=== PATIENT | female | born 1935 | race Caucasian/White ===

== ENCOUNTER 2017-09-20 18:21 | Emergency (ER) | END 2017-09-21 01:27 | disposition home or self-care (01) ==

== ENCOUNTER 2018-08-14 04:44 | Inpatient (IN) | payer MEDICARE, OTHER ==
[~2018-08-14] VITALS: Ht 149.9 cm; Wt 63.3 kg
[2018-08-14] VITALS (11 sets, daily range): BP systolic 131–167; BP diastolic 61–72; PULSE 39–93; RESP 16–20; Ht 149.9 cm; Wt 63.3 kg
[~2018-08-14 04:44] MED LIST: FERROUS SULFATE PO; GABAPENTIN PO; MELOXICAM PO; NITR-58 PO; ONDA4TAB8 PO; PANTOPRAZOLE PO; PREVASTATIN; SEROQUEL PO; SERTRALINE PO; TRAMADOL; ZOLPIDEM PO
[2018-08-14] MEDS ORDERED: morphine 2 MG INJ IV ONE (05:13)
[2018-08-14] MEDS ORDERED: ONDANSETRON 4 MG INJ IV ONE (05:13)
[2018-08-14] MEDS ORDERED: LIDOCAINE/MYLANTA 40 ML BTL PO ONE (05:30)
[2018-08-14] MEDS ORDERED: CEFEPIME 2GM/50 ML (PMX) 50 ML IVPB STA (05:53)
[2018-08-14] MEDS ORDERED: PIPER-TAZO 3.375 GM IV (PMX) 100 ML IVPB STA (05:56)
[2018-08-14] MEDS ORDERED: VANCOMYCIN 1 GM (PMX) 250 ML IVPB ONE (06:00)
--- NOTE | 2018-08-14 06:27 | ERD ---
ER Documentation Chief Complaint Chief Complaint bib ra from home for epigastric pain x 1 day, n/v HPI This is a 82-year-old female who presents for evaluation of epigastric pain for 1 day associated with nausea and vomiting. She denies any chest pain or shortness of breath, she has been having a cough and URI-like symptoms. She states that she has a past history of a distant cholecystectomy in the early 90s. She has not had a fever. ROS All systems reviewed and are negative except as per history of present illness. Medications Home Meds Active Scripts Nitrofurantoin Monohyd Macrocr* (Macrobid*) 100 Mg Capsr, 100 MG PO BID for 7 Days, CAP Prov:HALEY SAMANIEGO MD 09/20/17 Ondansetron Hcl* (Zofran*) 4 Mg Tablet, 4 MG PO Q6H PRN for NAUSEA AND/OR VOMITING, #10 TAB Prov:HALEY SAMANIEGO MD 09/20/17 Reported Medications [Zolpidem] No Conflict Check, PO 02/28/11 [Tramadol] No Conflict Check 02/28/11 [Sertraline] No Conflict Check, PO 02/28/11 [Seroquel] No Conflict Check, PO 02/28/11 [Prevastatin] No Conflict Check 02/28/11 [Pantoprazole] No Conflict Check, PO 02/28/11 [Meloxicam] No Conflict Check, PO 02/28/11 [Gabapentin] No Conflict Check, PO 02/28/11 [Ferrous Sulfate] No Conflict Check, PO 02/28/11 Allergies Allergies: Coded Allergies: No Known Allergy (Unverified , 12/08/13) PMhx/Soc History of Surgery: Yes (Cholecystectomy, appendectomy) Hx Cardiac Disorders: Yes (Hypertension) Hx Miscellaneous Medical Probl: Yes (htn) Hx Alcohol Use: No Hx Substance Use: No Hx Tobacco Use: No Smoking Status: Never smoker Physical Exam Vitals Vital Signs Date Temp Pulse Resp B/P (MAP) Pulse Ox O2 O2 Flow FiO2 Time Delivery Rate 08/14/18 98.7 65 19 185/80 100 05:05 (115) 08/14/18 98.7 50 19 181/82 100 Room Air 05:05 (115) Physical Exam Const: Elderly appearing female, who is in moderate distress Head: Atraumatic Eyes: Normal Conjunctiva ENT: Normal External Ears, Nose and Mouth. Neck: Full range of motion. No meningismus. Resp: Clear to auscultation bilaterally Cardio: Sinus bradycardia with regular rhythm, no murmurs Abd: Soft, there is epigastric tenderness, there is no rebound or guarding, non distended. Normal bowel sounds Skin: No petechiae or rashes Back: No midline or flank tenderness Ext: No cyanosis, or edema Neur: Awake and alert Psych: Normal Mood and Affect Result Diagram: 08/14/18 0500 08/14/18 0500 Results 24 hrs Laboratory Tests Test 08/14/18 05:00 08/14/18 06:15 White Blood Count 7.5 10^3/ul Red Blood Count 3.70 10^6/ul Hemoglobin 11.6 g/dl Hematocrit 34.0 % Mean Corpuscular Volume 91.9 fl Mean Corpuscular Hemoglobin 31.4 pg Mean Corpuscular Hemoglobin Concent 34.1 g/dl Red Cell Distribution Width 12.0 % Platelet Count 306 10^3/UL Mean Platelet Volume 9.2 fl Immature Granulocytes % 0.400 % Neutrophils % 69.1 % Lymphocytes % 20.8 % Monocytes % 9.1 % Eosinophils % 0.3 % Basophils % 0.3 % Nucleated Red Blood Cells % 0.0 /100WBC Immature Granulocytes # 0.030 10^3/ul Neutrophils # 5.2 10^3/ul Lymphocytes # 1.6 10^3/ul Monocytes # 0.7 10^3/ul Eosinophils # 0.0 10^3/ul Basophils # 0.0 10^3/ul Nucleated Red Blood Cells # 0.0 10^3/ul Sodium Level 143 mmol/L Potassium Level 4.1 mmol/L Chloride Level 101 mmol/L Carbon Dioxide Level 32 mmol/L Anion Gap 10 Blood Urea Nitrogen 13 mg/dl Creatinine 0.71 mg/dl Est Glomerular Filtrat Rate mL/min mL/min Glucose Level 225 mg/dl Calcium Level 10.2 mg/dl Total Bilirubin 1.2 mg/dl Direct Bilirubin 0.40 mg/dl Indirect Bilirubin 0.8 mg/dl Aspartate Amino Transf (AST/SGOT) Pending Alanine Aminotransferase (ALT/SGPT) 2055 IU/L Alkaline Phosphatase 272 IU/L Troponin I < 0.012 ng/ml Total Protein 8.3 g/dl Albumin 4.7 g/dl Globulin 3.60 g/dl Albumin/Globulin Ratio 1.30 Lipase Pending POC Venous Lactate 0.7 mmol/L Current Medications Medications Dose Sig/Tabatha Start Time Status Last (Trade) Ordered Route PRN Stop Time Admin Dose Reason Admin Morphine 2 mg ONCE ONCE 08/14/18 DC 08/14/18 Sulfate IV 05:13 05:25 (morphine) 08/14/18 05:14 Ondansetron 4 mg ONCE ONCE 08/14/18 DC 08/14/18 HCl (Zofran IV 05:13 05:24 Inj) 08/14/18 05:14 40 ml ONCE ONCE 08/14/18 DC 08/14/18 Miscellaneous PO 05:30 05:24 Medication 08/14/18 05:31 (Gi Cocktail (2)) Cefepime HCl 50 ml @ ONCE STAT 08/14/18 DC 100 mls/hr IVPB 05:53 08/14/18 05:58 Vancomycin 250 ml @ ONCE ONCE 08/14/18 HCl 125 mls/hr IVPB 06:00 08/14/18 07:59 Piperacillin 100 ml @ ONCE STAT 08/14/18 Sod/ 200 mls/hr IVPB 05:56 Tazobactam 08/14/18 06:25 Sod Procedures/MDM 82-year-old female who presents for evaluation of epigastric pain. Patient has no peritoneal signs on abdominal exam, however her labs were remarkable for significant elevation in her LFTs, raising my concern for hepatic congestion, biliary obstruction, or other intra-abdominal infection. She was treated empirically with vancomycin and Zosyn. Her lactate was within normal limits, and she had no evidence of cysts severe sepsis or septic shock. Patient will be admitted to telemetry, her CT abdomen pelvis results are pending, signed out to oncoming physician. EKG: Rate/Rhythm: Sinus bradycardia QRS, ST, T-waves: No changes consistent w/ acute ischemia Impression: No evidence of ischemia or arrhythmia Accepting Care Team: Current data and ongoing care discussed. Primary: Raad Consulting: None Outstanding Data: CT abd/pelvis, CT brain Departure Diagnosis: Primary Impression: Abdominal pain Abdominal location: unspecified location Qualified Codes: R10.9 - Unspecified abdominal pain Additional Impression: Transaminitis Condition: Stable TESSIE FAUSTIN MD August 14, 2018 06:27
[2018-08-14] MEDS ORDERED: morphine 2 MG INJ IV STA (07:30)
[2018-08-14] MEDS ORDERED: hydrALAzine 20 MG INJ IV PRN ×2 (07:30→11:30)
[2018-08-14] MEDS ORDERED: TRAM50TA PO (09:42)
[2018-08-14] MEDS ORDERED: FER325 PO (09:43)
[2018-08-14] MEDS ORDERED: FURO20TA3 PO (09:43)
[2018-08-14] MEDS ORDERED: IBUP-1544 PO (09:44)
[2018-08-14] MEDS ORDERED: AMLO-147 PO (09:44)
[2018-08-14] MEDS ORDERED: PANT40TA4 PO (09:44)
[2018-08-14] MEDS ORDERED: LOSA100T15 PO (09:45)
[2018-08-14] MEDS ORDERED: SERT50TA6 PO (09:45)
[2018-08-14] MEDS ORDERED: ALEN70TA5 PO (09:46)
--- NOTE | 2018-08-14 10:37 | HP ---
Date/Time of Note Date/Time of Note DATE: 08/14/18 TIME: 10:37 Assessment/Plan VTE Prophylaxis Pharmacological prophylaxis: LMWH Assessment/Plan Hospital Course 82-year-old female with past medical history of hypertension who came to the emergency room with chief complaint of epigastric abdominal pain with associated nausea and vomiting with clinical and radiographic evidence of acute pancreatitis, who will be admitted to inpatient setting for further treatment and evaluation. 1. Acute pancreatitis. -Etiology unclear. -Patient status post cholecystectomy. -The patient is not an alcohol user. -Order MRCP. -Obtain gastroenterology consult. -Continue n.p.o. -Continue IV hydration -Continue pain control. 2. Transaminitis. -Etiology unclear. -Hepatitis serology positive for hepatitis A antibody and hepatitis B surface antibody. -Confirmation test pending. -Drug toxicology for salicylates and acetaminophen negative. -Avoid hepatotoxic medications -Obtain gastroenterology consult. 3. Sinus bradycardia. -Cardiology evaluation. -Avoid AV mario alberto blocking drugs. 4. Dyslipidemia. -Fasting lipid panel showing a total cholesterol of 209. 5. Hypertension. -Continue PRN hydralazine until the patient is able to tolerate oral intake Plan: The patient will be admitted to inpatient telemetry floor. The patient will be kept n.p.o. The patient will be started on DVT prophylaxis and gastrointestinal prophylaxis. The patient will remain a full code. Activities will be as tolerated. The rest of the patient's management will be based on the clinical course, inputs from consultants, and the results of diagnostic studies. Based on the patient's clinical presentation, she most probably requires at least 2 midnights' stay for further management and evaluation of her clinical presentation. The patient was seen in collaboration with Dr. Cortez. Result Diagram: 08/14/18 0500 08/14/18 0500 Results 24hrs Laboratory Tests Test 08/14/18 05:00 08/14/18 06:15 08/14/18 07:37 08/14/18 07:38 White Blood Count 7.5 # Red Blood Count 3.70 L Hemoglobin 11.6 L Hematocrit 34.0 L Mean Corpuscular 91.9 Volume Mean Corpuscular 31.4 Hemoglobin Mean Corpuscular 34.1 Hemoglobin Concent Red Cell 12.0 Distribution Width Platelet Count 306 Mean Platelet Volume 9.2 Immature 0.400 Granulocytes % Neutrophils % 69.1 Lymphocytes % 20.8 Monocytes % 9.1 Eosinophils % 0.3 Basophils % 0.3 Nucleated Red Blood 0.0 Cells % Immature 0.030 Granulocytes # Neutrophils # 5.2 Lymphocytes # 1.6 Monocytes # 0.7 Eosinophils # 0.0 Basophils # 0.0 Nucleated Red Blood 0.0 Cells # Sodium Level 143 Potassium Level 4.1 Chloride Level 101 Carbon Dioxide Level 32 H Anion Gap 10 Blood Urea Nitrogen 13 Creatinine 0.71 Est Glomerular Filtrat Rate mL/min Glucose Level 225 H Calcium Level 10.2 Total Bilirubin 1.2 Direct Bilirubin 0.40 H Indirect Bilirubin 0.8 Aspartate Amino 2670 H Transf (AST/SGOT) Alanine 2055 H Aminotransferase (AL T/SGPT) Alkaline Phosphatase 272 H Troponin I < 0.012 Total Protein 8.3 H Albumin 4.7 Globulin 3.60 H Albumin/Globulin 1.30 Ratio Lipase 56369 H POC Venous Lactate 0.7 Salicylates Level < 1.0 L Acetaminophen Level < 10.0 L Hepatitis A Antibody POSITIVE H Total Hepatitis B Surface NEGATIVE Antigen Hepatitis B Core NEGATIVE Total Antibody Hepatitis C Antibody NEGATIVE Hepatitis B Surface POSITIVE H Antibody HPI/ROS Admit Date/Time Admit Date/Time August 14, 2018 at 06:17 Hx of Present Illness Reason for admission: Abdominal pain. Pancreatitis. Consultants 1. Gastroenterology. 2. Cardiology. This is a 82-year-old female with past medical history of hypertension, who came to the emergency room with chief complaint of epigastric abdominal pain with associated nausea and vomiting. The patient verbalized that she started having abdominal pain and chest pain. She took some medications that she brought from [facility] that relieved her chest pain. The patient tried some Tylenol for her abdominal pain with minimal improvement. The patient was complaining of multiple episodes of nonbilious vomiting. The patient denied any hematemesis. The patient denied any fevers. The patient denied any recent travels. The patient denied any diarrhea or hematochezia. In the emergency room, the patient was noticed to have significant transaminitis. The patient was also [place] [address] scan of the abdomen and pelvis was showing findings consistent with pancreatitis. The patient was treated with IV fluids, analgesics, and IV antibiotics in the emergency room. ROS Constitutional: nausea, poor po Eyes: no complaints ENT: no complaints Respiratory: no complaints Cardiovascular: chest pain Gastrointestinal: pain, nausea, vomiting Genitourinary: no complaints Musculoskeletal: no complaints Skin: no complaints Neurologic: no complaints Endocrine: no complaints Lymphatic: no complaints Psychological: no complaints Immunologic: no complaints PMH/Family/Social Past Medical History 1. HTN. Medications Current Medications Hydralazine HCl (Apresoline) 10 mg Q4H PRN IV ELEVATED BLOOD PRESSURE; Start 08/14/18 at 07:30 Coded Allergies: No Known Allergy (Unverified , 08/14/18) Past Surgical History 1. Cholecystectomy. 2. Bowel resection. Social History The patient lives at home with family. Alcohol Use: none Smoking Status: Never smoker Drug Use: none Exam/Review of Systems Vital Signs Vitals Vital Signs Date Temp Pulse Resp B/P (MAP) Pulse Ox O2 O2 Flow FiO2 Time Delivery Rate 08/14/18 97.8 50 16 167/72 95 Nasal 2.0 10:21 (103) Cannula Exam Exam General: Adequately build 82 year-old female lying in bed in no apparent distress. HEENT: Normocephalic, atraumatic. Eyes: Anicteric sclerae, conjunctivae clear. ENT: Nasal septum midline, oral mucosa moist. Neck supple, no JVD noticed. Respiratory: Bilaterally clear breath sounds. No use of accessory muscles of respiration. No adventitious breath sounds. Cardiovascular: S1, S2 heard. Bradycardia. Abdomen: Soft and nondistended. Tenderness in the epigastric and left upper quadrant. Bowel sounds positive in all 4 quadrants. Genitourinary: Deferred. Extremities: No cyanosis, no clubbing, no edema. Peripheral pulses palpable. Neurologic: Cranial nerves II through XII grossly intact. The patient is awake, alert, and oriented. Skin: Normal skin turgor. No skin rashes. DANIELLE FULTON NP August 14, 2018 10:37
[2018-08-14] MEDS ORDERED: ONDANSETRON 4 MG INJ IV PRN (11:30)
[2018-08-14] MEDS ORDERED: NACL 0.9% 3 ML SYG IV SCH (11:30)
[2018-08-14] MEDS: SOD CHLORIDE 0.9% 1,000 ML IV SCH ×3 (11:51→20:17)
[2018-08-14] MEDS: morphine 2 MG INJ IV PRN ×2 (11:52→16:52)
--- NOTE | 2018-08-14 12:22 | CONS ---
Assessment/Plan Assessment/Plan Hospital Course (Demo Recall) Sinus bradycardia: Tele with sinus bradycardia in the 50s with intermittent PACs. No symptoms and no h/o syncope. Not on meds. May just be her baseline. Possible vagal component from N/V/pain. No intervention necessary Acute pancreatitis: no ductal stone per CT. No pancreatic mass noted. ?sludge. Transaminitis: due to above N/V due to above HTN -monitor on tele -NPO, IVF -PRN IV hydralazine until can tolerate her home meds Consultation Date/Type/Reason Admit Date/Time August 14, 2018 at 06:17 Date of Consultation: August 14, 2018 Type of Consult Cardiology Reason for Consultation Bradycardia Requesting Provider: DANIELLE FULTON NP Date/Time of Note DATE: 08/14/18 TIME: 12:16 Hx of Present Illness 82 yo F with a h/o HTN, cholecystectomy in the , who presented with abdominal pain/N/V and was found to have acute pancreatitis and transaminitis. She notes that the symptoms started suddenly yesterday and she vomited multiple times. Pain has significantly improved but still present. No further vomiting. No known cardiac history per pt. She is not on BB/CCB at home. She was noted to have sinus bradycardia on tele for which cardiology is consulted. No h/o dizziness or syncope. per HPI Past Medical History per hPI Home Meds Reported Medications Alendronate Sodium* (Fosamax*) 70 Mg Tablet, 70 MG PO Q7D, #4 TAB 08/14/18 Sertraline Hcl* (Sertraline Hcl*) 50 Mg Tablet, 50 MG PO DAILY, #30 TAB 08/14/18 Losartan Potassium* (Losartan Potassium*) 100 Mg Tablet, 100 MG PO DAILY, TAB 08/14/18 Pantoprazole* (Pantoprazole*) 40 Mg Tablet.dr, 40 MG PO AC BREAKFAST, TAB 08/14/18 Amlodipine Besylate* (Amlodipine Besylate*) 10 Mg Tablet, 10 MG PO DAILY, #30 TAB 08/14/18 Ibuprofen* (Ibuprofen*) 800 Mg Tablet, 800 MG PO NEEDED, TAB 08/14/18 Furosemide* (Furosemide*) 20 Mg Tablet, 20 MG PO DAILY, #60 TAB 08/14/18 Ferrous Sulfate* (Ferrous Sulfate*) 325 Mg Tabec, 325 MG PO BID, TAB 08/14/18 Tramadol Hcl* (Ultram*) 50 Mg Tablet, 50 MG PO BID PRN for PAIN, TAB 08/14/18 Discontinued Reported Medications [Zolpidem] No Conflict Check, PO 02/28/11 [Tramadol] No Conflict Check 02/28/11 [Sertraline] No Conflict Check, PO 02/28/11 [Seroquel] No Conflict Check, PO 02/28/11 [Prevastatin] No Conflict Check 02/28/11 [Pantoprazole] No Conflict Check, PO 02/28/11 [Meloxicam] No Conflict Check, PO 02/28/11 [Gabapentin] No Conflict Check, PO 02/28/11 [Ferrous Sulfate] No Conflict Check, PO 02/28/11 Discontinued Scripts Nitrofurantoin Monohyd Macrocr* (Macrobid*) 100 Mg Capsr, 100 MG PO BID for 7 Days, CAP Prov:HALEY SAMANIEGO MD 09/20/17 Ondansetron Hcl* (Zofran*) 4 Mg Tablet, 4 MG PO Q6H PRN for NAUSEA AND/OR VOMITING, #10 TAB Prov:HALEY SAMANIEGO MD 09/20/17 Medications Current Medications IV Flush (NS 3 ml) 3 ml PER PROTOCOL IV ; Start 08/14/18 at 11:30 Ondansetron HCl (Zofran Inj) 4 mg Q4H PRN IV NAUSEA AND/OR VOMITING; Start 08/14/18 at 11:30 Sodium Chloride 1,000 ml @ 125 mls/hr Q8H IV Last administered on 08/14/18at 11:51; Admin Dose 125 MLS/HR; Start 08/14/18 at 11:30 Hydralazine HCl (Apresoline) 10 mg Q6H PRN IV SBP>160; Start 08/14/18 at 11:30 Morphine Sulfate (morphine) 2 mg Q4H PRN IV SEVERE PAIN LEVEL 7-10 Last administered on 08/14/18at 11:52; Admin Dose 2 MG; Start 08/14/18 at 11:30 Famotidine (Pepcid Iv) 40 mg BID IV ; Start 08/14/18 at 12:00 Allergies: Coded Allergies: No Known Allergy (Unverified , 08/14/18) Social History Smoking Status: Never smoker Exam/Review of Systems Vital Signs Vitals Vital Signs Date Temp Pulse Resp B/P (MAP) Pulse Ox O2 O2 Flow FiO2 Time Delivery Rate 08/14/18 2.0 10:37 08/14/18 97.8 50 16 167/72 95 Nasal 10:21 (103) Cannula Exam Constitutional: alert, oriented Psych: no complaints, nl mood/affect Head: normocephalic, atraumatic Neck: supple; No jvd Respiratory: clear to auscultation; No crackles/rales Cardiovascular: No regular rate and rhythm (bradycardic, regular rhythm), No edema, No systolic murmur Gastrointestinal: soft; No non-tender (mild epigastric), No distended Neurological: nl mental status, nl speech Labs Result Diagram: 08/14/18 0500 08/14/18 0500 Results 24hrs Laboratory Tests Test 08/14/18 05:00 08/14/18 06:15 08/14/18 07:37 08/14/18 07:38 White Blood Count 7.5 # Red Blood Count 3.70 L Hemoglobin 11.6 L Hematocrit 34.0 L Mean Corpuscular 91.9 Volume Mean Corpuscular 31.4 Hemoglobin Mean Corpuscular 34.1 Hemoglobin Concent Red Cell 12.0 Distribution Width Platelet Count 306 Mean Platelet Volume 9.2 Immature 0.400 Granulocytes % Neutrophils % 69.1 Lymphocytes % 20.8 Monocytes % 9.1 Eosinophils % 0.3 Basophils % 0.3 Nucleated Red Blood 0.0 Cells % Immature 0.030 Granulocytes # Neutrophils # 5.2 Lymphocytes # 1.6 Monocytes # 0.7 Eosinophils # 0.0 Basophils # 0.0 Nucleated Red Blood 0.0 Cells # Sodium Level 143 Potassium Level 4.1 Chloride Level 101 Carbon Dioxide Level 32 H Anion Gap 10 Blood Urea Nitrogen 13 Creatinine 0.71 Est Glomerular Filtrat Rate mL/min Glucose Level 225 H Hemoglobin A1c 5.7 Calcium Level 10.2 Total Bilirubin 1.2 Direct Bilirubin 0.40 H Indirect Bilirubin 0.8 Aspartate Amino 2670 H Transf (AST/SGOT) Alanine 2055 H Aminotransferase (AL T/SGPT) Alkaline Phosphatase 272 H Troponin I < 0.012 Total Protein 8.3 H Albumin 4.7 Globulin 3.60 H Albumin/Globulin 1.30 Ratio Triglycerides Level 72 Cholesterol Level 209 H LDL Cholesterol, 116 Calculated HDL Cholesterol 79 Cholesterol/HDL 2.6 Ratio Lipase 43245 H POC Venous Lactate 0.7 B-Type Natriuretic 904 H Peptide Salicylates Level < 1.0 L Acetaminophen Level < 10.0 L Hepatitis A Antibody POSITIVE H Total Hepatitis B Surface NEGATIVE Antigen Hepatitis B Core NEGATIVE Total Antibody Hepatitis C Antibody NEGATIVE Hepatitis B Surface POSITIVE H Antibody Test 08/14/18 10:19 Lactic Acid Level 1.0 Medications Medications Current Medications IV Flush (NS 3 ml) 3 ml PER PROTOCOL IV ; Start 08/14/18 at 11:30 Ondansetron HCl (Zofran Inj) 4 mg Q4H PRN IV NAUSEA AND/OR VOMITING; Start 08/14/18 at 11:30 Sodium Chloride 1,000 ml @ 125 mls/hr Q8H IV Last administered on 08/14/18at 11:51; Admin Dose 125 MLS/HR; Start 08/14/18 at 11:30 Hydralazine HCl (Apresoline) 10 mg Q6H PRN IV SBP>160; Start 08/14/18 at 11:30 Morphine Sulfate (morphine) 2 mg Q4H PRN IV SEVERE PAIN LEVEL 7-10 Last administered on 08/14/18at 11:52; Admin Dose 2 MG; Start 08/14/18 at 11:30 Famotidine (Pepcid Iv) 40 mg BID IV ; Start 08/14/18 at 12:00 CRYS STACY August 14, 2018 12:22
[2018-08-14] MEDS: FAMOTIDINE 20 MG INJ IV SCH ×2 (12:57→20:17)
--- NOTE | 2018-08-14 13:10 | CONS ---
Assessment/Plan Assessment/Plan Assessment/Plan (Daily) Assessment: Acute pancreatitis -lipase 09932 Transaminitis greater than 2000 -pancreatitis versus ischemia Mildly prominent biliary ducts on CT -likely passed a stone Status post cholecystectomy Bradycardia Epigastric pain Hypertension Plan: MRCP Keep n.p.o. Continue IV fluids Pain management Antiemetics Monitor lipase and LFTs Patient seen in collaboration with Dr. Springer Consultation Date/Type/Reason Admit Date/Time August 14, 2018 at 06:17 Date of Consultation: August 14, 2018 Type of Consult GI Reason for Consultation Acute pancreatitis/transaminitis Date/Time of Note DATE: 08/14/18 TIME: 12:49 Hx of Present Illness This is a 82-year-old female with a hypertension who was admitted for epigastric pain, nausea and vomiting. According to the daughter the symptoms started yesterday afternoon after a meal. This is a first episode of pancreatitis. Patient denies any history of diabetes or alcohol drinking. No EGD or colonoscopy in the past. Abdominal CT showed evidence of acute pancreatitis. [place] [address]250, transaminitis greater than 2000 with normal bilirubin. Patient has a history of lap makayla. Hepatitis serology and acetamin ophen levels were negative. Patient was started on IV fluids at 125 cc/h. Patient denies diarrhea, hematemesis, hematochezia or fever. The plan is to obtain MRCP to rule out choledocholithiasis. Patient likely passed a stone. We will continue n.p.o. status, IV hydration and monitoring labs. Gastrointestinal: no complaints (see HPI) Past Medical History Medical History: hypertension Home Meds Reported Medications Alendronate Sodium* (Fosamax*) 70 Mg Tablet, 70 MG PO Q7D, #4 TAB 08/14/18 Sertraline Hcl* (Sertraline Hcl*) 50 Mg Tablet, 50 MG PO DAILY, #30 TAB 08/14/18 Losartan Potassium* (Losartan Potassium*) 100 Mg Tablet, 100 MG PO DAILY, TAB 08/14/18 Pantoprazole* (Pantoprazole*) 40 Mg Tablet.dr, 40 MG PO AC BREAKFAST, TAB 08/14/18 Amlodipine Besylate* (Amlodipine Besylate*) 10 Mg Tablet, 10 MG PO DAILY, #30 TAB 08/14/18 Ibuprofen* (Ibuprofen*) 800 Mg Tablet, 800 MG PO NEEDED, TAB 08/14/18 Furosemide* (Furosemide*) 20 Mg Tablet, 20 MG PO DAILY, #60 TAB 08/14/18 Ferrous Sulfate* (Ferrous Sulfate*) 325 Mg Tabec, 325 MG PO BID, TAB 08/14/18 Tramadol Hcl* (Ultram*) 50 Mg Tablet, 50 MG PO BID PRN for PAIN, TAB 08/14/18 Discontinued Reported Medications [Zolpidem] No Conflict Check, PO 02/28/11 [Tramadol] No Conflict Check 02/28/11 [Sertraline] No Conflict Check, PO 02/28/11 [Seroquel] No Conflict Check, PO 02/28/11 [Prevastatin] No Conflict Check 02/28/11 [Pantoprazole] No Conflict Check, PO 02/28/11 [Meloxicam] No Conflict Check, PO 02/28/11 [Gabapentin] No Conflict Check, PO 02/28/11 [Ferrous Sulfate] No Conflict Check, PO 02/28/11 Discontinued Scripts Nitrofurantoin Monohyd Macrocr* (Macrobid*) 100 Mg Capsr, 100 MG PO BID for 7 Days, CAP Prov:HALEY SAMANIEGO MD 09/20/17 Ondansetron Hcl* (Zofran*) 4 Mg Tablet, 4 MG PO Q6H PRN for NAUSEA AND/OR VOMITING, #10 TAB Prov:HALEY SAMANIEGO MD 09/20/17 Medications Current Medications IV Flush (NS 3 ml) 3 ml PER PROTOCOL IV ; Start 08/14/18 at 11:30 Ondansetron HCl (Zofran Inj) 4 mg Q4H PRN IV NAUSEA AND/OR VOMITING; Start 08/14/18 at 11:30 Sodium Chloride 1,000 ml @ 125 mls/hr Q8H IV Last administered on 08/14/18at 11:51; Admin Dose 125 MLS/HR; Start 08/14/18 at 11:30 Hydralazine HCl (Apresoline) 10 mg Q6H PRN IV SBP>160; Start 08/14/18 at 11:30 Morphine Sulfate (morphine) 2 mg Q4H PRN IV SEVERE PAIN LEVEL 7-10 Last administered on 08/14/18at 11:52; Admin Dose 2 MG; Start 08/14/18 at 11:30 Famotidine (Pepcid Iv) 40 mg BID IV ; Start 08/14/18 at 12:00 Allergies: Coded Allergies: No Known Allergy (Unverified , 08/14/18) Social History Alcohol Use: none Smoking Status: Never smoker Drug Use: none Exam/Review of Systems Exam Vitals Vital Signs Date Temp Pulse Resp B/P (MAP) Pulse Ox O2 O2 Flow FiO2 Time Delivery Rate 08/14/18 2.0 10:37 08/14/18 97.8 50 16 167/72 95 Nasal 10:21 (103) Cannula Exam PHYSICAL EXAMINATION: GENERAL: Well developed, well nourished, alert & oriented x 3, in no acute distress SKIN: No lesions, no stigmata chronic liver disease, no evidence of bleeding diathesis LYMPHATIC: No palpable lymphadenopathy. HEAD: Normocephalic, atraumatic, no tenderness. EYES: Pupils equal reactive to light and accommodation, full extraocular movements, sclera clear, non-icteric, no discharge. EARS/NOSE AND THROAT: Ears normal, nose normal, oropharynx normal, oral membranes well hydrated without lesions. NECK: Supple, no masses, thyroid normal, JVP within normal limits, carotids normal without bruits. CHEST: Inspection within normal limits. CARDIOVASCULAR: Heart: Regular rate and rhythm, no murmurs, gallops or rubs. Peripheral pulses present within normal limits, no cyanosis, clubbing or edemas. No pulsatile abdominal mass RESPIRATORY: Lungs clear to auscultation and percussion, no wheezing, no rubs GASTROINTESTINAL AND LIVER: Abdomen: Soft, epigastric tenderness, non-distended, no hernias, no masses, no organomegaly, no ascites, no guarding, no rebound tenderness, normoactive bowel sounds. Rectal: Deferred. GENITOURINARY: Female genitalia within normal limits. EXTREMITIES: No cyanosis, clubbing or edema. Results Result Diagram: 08/14/18 0500 08/14/18 0500 Results 24hrs Laboratory Tests Test 08/14/18 05:00 08/14/18 06:15 08/14/18 07:37 08/14/18 07:38 White Blood Count 7.5 # Red Blood Count 3.70 L Hemoglobin 11.6 L Hematocrit 34.0 L Mean Corpuscular 91.9 Volume Mean Corpuscular 31.4 Hemoglobin Mean Corpuscular 34.1 Hemoglobin Concent Red Cell 12.0 Distribution Width Platelet Count 306 Mean Platelet Volume 9.2 Immature 0.400 Granulocytes % Neutrophils % 69.1 Lymphocytes % 20.8 Monocytes % 9.1 Eosinophils % 0.3 Basophils % 0.3 Nucleated Red Blood 0.0 Cells % Immature 0.030 Granulocytes # Neutrophils # 5.2 Lymphocytes # 1.6 Monocytes # 0.7 Eosinophils # 0.0 Basophils # 0.0 Nucleated Red Blood 0.0 Cells # Sodium Level 143 Potassium Level 4.1 Chloride Level 101 Carbon Dioxide Level 32 H Anion Gap 10 Blood Urea Nitrogen 13 Creatinine 0.71 Est Glomerular Filtrat Rate mL/min Glucose Level 225 H Hemoglobin A1c 5.7 Calcium Level 10.2 Total Bilirubin 1.2 Direct Bilirubin 0.40 H Indirect Bilirubin 0.8 Aspartate Amino 2670 H Transf (AST/SGOT) Alanine 2055 H Aminotransferase (AL T/SGPT) Alkaline Phosphatase 272 H Troponin I < 0.012 Total Protein 8.3 H Albumin 4.7 Globulin 3.60 H Albumin/Globulin 1.30 Ratio Triglycerides Level 72 Cholesterol Level 209 H LDL Cholesterol, 116 Calculated HDL Cholesterol 79 Cholesterol/HDL 2.6 Ratio Lipase 62182 H POC Venous Lactate 0.7 B-Type Natriuretic 904 H Peptide Salicylates Level < 1.0 L Acetaminophen Level < 10.0 L Hepatitis A Antibody POSITIVE H Total Hepatitis B Surface NEGATIVE Antigen Hepatitis B Core NEGATIVE Total Antibody Hepatitis C Antibody NEGATIVE Hepatitis B Surface POSITIVE H Antibody Test 08/14/18 10:19 Lactic Acid Level 1.0 Medications Medication Current Medications IV Flush (NS 3 ml) 3 ml PER PROTOCOL IV ; Start 08/14/18 at 11:30 Ondansetron HCl (Zofran Inj) 4 mg Q4H PRN IV NAUSEA AND/OR VOMITING; Start 08/14/18 at 11:30 Sodium Chloride 1,000 ml @ 125 mls/hr Q8H IV Last administered on 08/14/18at 11:51; Admin Dose 125 MLS/HR; Start 08/14/18 at 11:30 Hydralazine HCl (Apresoline) 10 mg Q6H PRN IV SBP>160; Start 08/14/18 at 11:30 Morphine Sulfate (morphine) 2 mg Q4H PRN IV SEVERE PAIN LEVEL 7-10 Last administered on 08/14/18at 11:52; Admin Dose 2 MG; Start 08/14/18 at 11:30 Famotidine (Pepcid Iv) 40 mg BID IV ; Start 08/14/18 at 12:00 GRACE MENDEZ NP August 14, 2018 13:01
--- NOTE | 2018-08-14 14:19 | RADRPT ---
Vent Rate: 47 bpm RR Interval: 0 msec NH Interval: 146 msec QRS Duration: 94 msec QT Interval: 730 msec QTC Interval: 646 msec P-R-T [place]: 82 - 20 - 82 degrees Marked sinus bradycardia Septal infarct , age undetermined Prolonged QT Abnormal ECG Electronically Signed By: [facility]
--- NOTE | 2018-08-14 14:20 | RADRPT ---
Vent Rate: 60 bpm RR Interval: 0 msec MT Interval: 158 msec QRS Duration: 86 msec QT Interval: 668 msec QTC Interval: 668 msec P-R-T [place]: 85 - 46 - 88 degrees Sinus rhythm with premature supraventricular complexes Septal infarct , age undetermined Prolonged QT Abnormal ECG Electronically Signed By: [facility]
[2018-08-14] MEDS ORDERED: PANTOPRAZOLE 40 MG INJ IV SCH (18:00)
[2018-08-14] MEDS ORDERED: LORAZEPAM 2 MG INJ IV ONE (20:00)
[2018-08-15] VITALS (13 sets, daily range): BP systolic 129–146; BP diastolic 56–66; PULSE 35–70; RESP 17–20
[2018-08-15] MEDS: FAMOTIDINE 20 MG INJ IV SCH ×2 (08:05→21:13)
--- NOTE | 2018-08-15 11:28 | PN ---
Date/Time of Note Date/Time of Note DATE: 08/15/18 TIME: 11:24 Assessment/Plan VTE Prophylaxis Risk score (from Ns)>0 risk: 4 SCD applied (from Ns): Yes Pharmacological prophylaxis: NA/contraindicated Pharm contraindication: low risk/ambulating Lines/Catheters IV [facility]ter [facility] (from [facility]): Peripheral IV Assessment/Plan Hospital Course SUBJECTIVE: Denies any abdominal pain. Complains of being hungry. OBJECTIVE: Physical Exam General: Adequately build 82 year-old female lying in bed in no apparent distress. HEENT: Normocephalic, atraumatic. Eyes: Anicteric sclerae, conjunctivae clear. ENT: Nasal septum midline, oral mucosa moist. Neck supple, no JVD noticed. Respiratory: Bilaterally clear breath sounds. No use of accessory muscles of respiration. No adventitious breath sounds. Cardiovascular: S1, S2 heard. Bradycardia. Abdomen: Soft and nondistended. Non-tender. Bowel sounds positive in all 4 quadrants. Genitourinary: Deferred. Extremities: No cyanosis, no clubbing, no edema. Peripheral pulses palpable. Neurologic: Cranial nerves II through XII grossly intact. The patient is awake, alert, and oriented. Skin: Normal skin turgor. No skin rashes. Labs & Vitals per chart ASSESSMENT & PLAN 82-year-old female with past medical history of hypertension who came to the emergency room with chief complaint of epigastric abdominal pain with associated nausea and vomiting with clinical and radiographic evidence of acute pancre atitis, who will be admitted to inpatient setting for further treatment and evaluation. 1. Acute pancreatitis. -Etiology unclear. -Patient status post cholecystectomy. -The patient is not an alcohol user. -MRCP showed mild pancreatic ductal dilatation with mild intrahepatic and extrahepatic biliary ductal dilatation without discrete pancreatic head lesion. -Gastroenterology following. -Continue IV hydration -Continue pain control. -Initiation of diet will be deferred to Gastroenterology. 2. Transaminitis. -Etiology unclear. -Hepatitis serology positive for hepatitis A antibody. Hepatitis A IgM negative. -Drug toxicology for salicylates and acetaminophen negative. -Avoid hepatotoxic medications -Gastroenterology following. 3. Sinus bradycardia. -Cardiology evaluation ongoing. -Avoid AV mario alberto blocking drugs. 4. Dyslipidemia. -Fasting lipid panel showing a total cholesterol of 209. 5. Hypertension. -Continue PRN hydralazine until the patient is able to tolerate oral intake. 6. Fluids, electrolytes, and nutrition.. -N.p.o. for medications 7. DVT prophylaxis. -Bilateral SCDs 8. Plan. -Continue pain control. -Continue IV hydration. -Await clinical improvement. -Await further gastroenterology recommendations. Plan of care was explained to the patient's family, who was at the bedside. The patient was seen in collaboration with Dr. Dumont. Result Diagram: 08/15/18 0548 08/15/18 0548 Results 24hrs Laboratory Tests Test 08/15/18 05:48 White Blood Count 7.1 Red Blood Count 3.29 L Hemoglobin 10.1 L Hematocrit 31.5 L Mean Corpuscular Volume 95.7 Mean Corpuscular Hemoglobin 30.7 Mean Corpuscular Hemoglobin Concent 32.1 Red Cell Distribution Width 12.2 Platelet Count 260 Mean Platelet Volume 9.4 Immature Granulocytes % 0.400 Neutrophils % 74.9 Lymphocytes % 16.0 Monocytes % 7.7 Eosinophils % 0.7 Basophils % 0.3 Nucleated Red Blood Cells % 0.0 Immature Granulocytes # 0.030 Neutrophils # 5.3 Lymphocytes # 1.1 Monocytes # 0.6 Eosinophils # 0.1 Basophils # 0.0 Nucleated Red Blood Cells # 0.0 Sodium Level 144 Potassium Level 3.6 Chloride Level 106 Carbon Dioxide Level 30 Anion Gap 8 Blood Urea Nitrogen 16 Creatinine 0.75 Est Glomerular Filtrat Rate mL/min Glucose Level 103 # Hemoglobin A1c 5.7 Calcium Level 8.7 Phosphorus Level 3.5 Magnesium Level 2.1 Total Bilirubin 0.7 Direct Bilirubin 0.00 # Indirect Bilirubin 0.7 Aspartate Amino Transf (AST/SGOT) 977 H Alanine Aminotransferase (ALT/SGPT) 1278 H Alkaline Phosphatase 287 H Total Protein 7.4 Albumin 4.0 Globulin 3.40 H Albumin/Globulin Ratio 1.17 Amylase Level 1929 H Lipase 7546 H Exam/Review of Systems Exam Vitals Vital Signs Date Temp Pulse Resp B/P (MAP) Pulse Ox O2 O2 Flow FiO2 Time Delivery Rate 08/15/18 43 08:01 08/15/18 Nasal 2.0 07:38 Cannula 08/15/18 98.6 20 131/56 95 07:24 (81) Intake and Output 08/14/18 08/14/18 08/15/18 1414:59 22:59 06:59 IntakeIntake Total 1025 ml 1000 ml BalanceBalance 1025 ml 1000 ml Results Results 24hrs Laboratory Tests Test 08/15/18 05:48 White Blood Count 7.1 Red Blood Count 3.29 L Hemoglobin 10.1 L Hematocrit 31.5 L Mean Corpuscular Volume 95.7 Mean Corpuscular Hemoglobin 30.7 Mean Corpuscular Hemoglobin Concent 32.1 Red Cell Distribution Width 12.2 Platelet Count 260 Mean Platelet Volume 9.4 Immature Granulocytes % 0.400 Neutrophils % 74.9 Lymphocytes % 16.0 Monocytes % 7.7 Eosinophils % 0.7 Basophils % 0.3 Nucleated Red Blood Cells % 0.0 Immature Granulocytes # 0.030 Neutrophils # 5.3 Lymphocytes # 1.1 Monocytes # 0.6 Eosinophils # 0.1 Basophils # 0.0 Nucleated Red Blood Cells # 0.0 Sodium Level 144 Potassium Level 3.6 Chloride Level 106 Carbon Dioxide Level 30 Anion Gap 8 Blood Urea Nitrogen 16 Creatinine 0.75 Est Glomerular Filtrat Rate mL/min Glucose Level 103 # Hemoglobin A1c 5.7 Calcium Level 8.7 Phosphorus Level 3.5 Magnesium Level 2.1 Total Bilirubin 0.7 Direct Bilirubin 0.00 # Indirect Bilirubin 0.7 Aspartate Amino Transf (AST/SGOT) 977 H Alanine Aminotransferase (ALT/SGPT) 1278 H Alkaline Phosphatase 287 H Total Protein 7.4 Albumin 4.0 Globulin 3.40 H Albumin/Globulin Ratio 1.17 Amylase Level 1929 H Lipase 7546 H Medications Medication Current Medications IV Flush (NS 3 ml) 3 ml PER PROTOCOL IV ; Start 08/14/18 at 11:30 Ondansetron HCl (Zofran Inj) 4 mg Q4H PRN IV NAUSEA AND/OR VOMITING Last administered on 08/14/18at 16:58; Admin Dose 4 MG; Start 08/14/18 at 11:30 Sodium Chloride 1,000 ml @ 125 mls/hr Q8H IV Last administered on 08/14/18at 20:17; Admin Dose 125 MLS/HR; Start 08/14/18 at 11:30 Hydralazine HCl (Apresoline) 10 mg Q6H PRN IV SBP>160; Start 08/14/18 at 11:30 Morphine Sulfate (morphine) 2 mg Q4H PRN IV SEVERE PAIN LEVEL 7-10 Last a dministered on 08/14/18at 16:52; Admin Dose 2 MG; Start 08/14/18 at 11:30 Famotidine (Pepcid Iv) 40 mg BID IV Last administered on 08/15/18at 08:05; Admin Dose 40 MG; Start 08/14/18 at 12:00 DANIELLE FULTON NP August 15, 2018 11:28
[2018-08-15] MEDS: SOD CHLORIDE 0.9% 1,000 ML IV SCH ×2 (13:11→19:30)
--- NOTE | 2018-08-15 14:19 | PN ---
Date/Time of Note Date/Time of Note DATE: 08/15/18 TIME: 14:12 Assessment/Plan VTE Prophylaxis Risk score (from Ns)>0 risk: 4 SCD applied (from Ns): Yes Pharmacological prophylaxis: heparin Lines/Catheters IV [facility]ter Type (from [facility]): Peripheral IV Assessment/Plan Assessment/Plan Assessment: Acute pancreatitis -lipase 09946 Transaminitis greater than 2000 -pancreatitis versus ischemia Mildly prominent biliary ducts on CT -likely passed a stone Status post cholecystectomy Bradycardia Epigastric pain Hypertension Plan: MRCP Can advance to clear liquids Continue IV fluids Pain management Antiemetics Monitor lipase and LFTs - trending down Patient seen in collaboration with Dr. Powell Subjective: The patient denies any nausea or vomiting, fevers, chills, or abdominal pain. She appears comfortable in bed. She is NPO. She has been afebrile and feels hungry. Can advance to clear liquids sparingly. Discussed with daughter. Transaminitis and pancreatic enzyme overall improving. PHYSICAL EXAMINATION: GENERAL: Well developed, well nourished, alert & oriented x 3, in no acute distress SKIN: No lesions, no stigmata chronic liver disease, no evidence of bleeding diathesis HEAD: Normocephalic, atraumatic, no tenderness. EYES: Pupils equal reactive to light and accommodation, full extraocular movemen ts, sclera clear, non-icteric, no discharge. EARS/NOSE AND THROAT: Ears normal, nose normal, oropharynx normal, oral membranes well hydrated without lesions. NECK: Supple, no masses, thyroid normal, JVP within normal limits, carotids normal without bruits. CHEST: Inspection within normal limits. CARDIOVASCULAR: Heart: Regular rate and rhythm, no murmurs, gallops or rubs. Peripheral pulses present within normal limits, no cyanosis, clubbing or edemas. No pulsatile abdominal mass RESPIRATORY: Lungs clear to auscultation and percussion, no wheezing, no rubs GASTROINTESTINAL AND LIVER: Abdomen: Soft, nontender, non-distended, no hernias, no masses, no organomegaly, no ascites, no guarding, no rebound tenderness, normoactive bowel sounds. Rectal: Deferred. EXTREMITIES: No cyanosis, clubbing or edema. Result Diagram: 08/15/18 0548 08/15/18 0548 Results 24hrs Laboratory Tests Test 08/15/18 05:48 White Blood Count 7.1 Red Blood Count 3.29 L Hemoglobin 10.1 L Hematocrit 31.5 L Mean Corpuscular Volume 95.7 Mean Corpuscular Hemoglobin 30.7 Mean Corpuscular Hemoglobin Concent 32.1 Red Cell Distribution Width 12.2 Platelet Count 260 Mean Platelet Volume 9.4 Immature Granulocytes % 0.400 Neutrophils % 74.9 Lymphocytes % 16.0 Monocytes % 7.7 Eosinophils % 0.7 Basophils % 0.3 Nucleated Red Blood Cells % 0.0 Immature Granulocytes # 0.030 Neutrophils # 5.3 Lymphocytes # 1.1 Monocytes # 0.6 Eosinophils # 0.1 Basophils # 0.0 Nucleated Red Blood Cells # 0.0 Sodium Level 144 Potassium Level 3.6 Chloride Level 106 Carbon Dioxide Level 30 Anion Gap 8 Blood Urea Nitrogen 16 Creatinine 0.75 Est Glomerular Filtrat Rate mL/min Glucose Level 103 # Hemoglobin A1c 5.7 Calcium Level 8.7 Phosphorus Level 3.5 Magnesium Level 2.1 Total Bilirubin 0.7 Direct Bilirubin 0.00 # Indirect Bilirubin 0.7 Aspartate Amino Transf (AST/SGOT) 977 H Alanine Aminotransferase (ALT/SGPT) 1278 H Alkaline Phosphatase 287 H Total Protein 7.4 Albumin 4.0 Globulin 3.40 H Albumin/Globulin Ratio 1.17 Amylase Level 1929 H Lipase 7546 H CC: L[facility] POWELL ; Exam/Review of Systems Exam Vitals Vital Signs Date Temp Pulse Resp B/P (MAP) Pulse Ox O2 O2 Flow FiO2 Time Delivery Rate 08/15/18 47 12:01 08/15/18 98.3 20 130/56 92 11:54 (80) 08/15/18 Nasal 2.0 07:38 Cannula Intake and Output 08/14/18 08/14/18 08/15/18 1515:00 23:00 07:00 IntakeIntake Total 1025 ml 1000 ml BalanceBalance 1025 ml 1000 ml Results Results 24hrs Laboratory Tests Test 08/15/18 05:48 White Blood Count 7.1 Red Blood Count 3.29 L Hemoglobin 10.1 L Hematocrit 31.5 L Mean Corpuscular Volume 95.7 Mean Corpuscular Hemoglobin 30.7 Mean Corpuscular Hemoglobin Concent 32.1 Red Cell Distribution Width 12.2 Platelet Count 260 Mean Platelet Volume 9.4 Immature Granulocytes % 0.400 Neutrophils % 74.9 Lymphocytes % 16.0 Monocytes % 7.7 Eosinophils % 0.7 Basophils % 0.3 Nucleated Red Blood Cells % 0.0 Immature Granulocytes # 0.030 Neutrophils # 5.3 Lymphocytes # 1.1 Monocytes # 0.6 Eosinophils # 0.1 Basophils # 0.0 Nucleated Red Blood Cells # 0.0 Sodium Level 144 Potassium Level 3.6 Chloride Level 106 Carbon Dioxide Level 30 Anion Gap 8 Blood Urea Nitrogen 16 Creatinine 0.75 Est Glomerular Filtrat Rate mL/min Glucose Level 103 # Hemoglobin A1c 5.7 Calcium Level 8.7 Phosphorus Level 3.5 Magnesium Level 2.1 Total Bilirubin 0.7 Direct Bilirubin 0.00 # Indirect Bilirubin 0.7 Aspartate Amino Transf (AST/SGOT) 977 H Alanine Aminotransferase (ALT/SGPT) 1278 H Alkaline Phosphatase 287 H Total Protein 7.4 Albumin 4.0 Globulin 3.40 H Albumin/Globulin Ratio 1.17 Amylase Level 1929 H Lipase 7546 H Medications Medication Current Medications IV Flush (NS 3 ml) 3 ml PER PROTOCOL IV ; Start 08/14/18 at 11:30 Ondansetron HCl (Zofran Inj) 4 mg Q4H PRN IV NAUSEA AND/OR VOMITING Last administered on 08/14/18at 16:58; Admin Dose 4 MG; Start 08/14/18 at 11:30 Sodium Chloride 1,000 ml @ 125 mls/hr Q8H IV Last administered on 08/15/18at 13:11; Admin Dose 125 MLS/HR; Start 08/14/18 at 11:30 Hydralazine HCl (Apresoline) 10 mg Q6H PRN IV SBP>160; Start 08/14/18 at 11:30 Morphine Sulfate (morphine) 2 mg Q4H PRN IV SEVERE PAIN LEVEL 7-10 Last administered on 08/14/18at 16:52; Admin Dose 2 MG; Start 08/14/18 at 11:30 Famotidine (Pepcid Iv) 40 mg BID IV Last administered on 08/15/18at 08:05; Admin Dose 40 MG; Start 08/14/18 at 12:00 RACHAEL CHEN NP August 15, 2018 14:19
[2018-08-15] MEDS ORDERED: ACETAMINOPHEN 650MG/20.3ML CUP PO PRN (21:00)
[2018-08-16] VITALS (8 sets, daily range): BP systolic 133–146; BP diastolic 62–71; PULSE 45–68; RESP 17–20
[2018-08-16] MEDS: SOD CHLORIDE 0.9% 1,000 ML IV SCH ×2 (03:30→08:45)
[2018-08-16] MEDS: FAMOTIDINE 20 MG INJ IV SCH (08:45)
--- NOTE | 2018-08-16 12:24 | PDOCDIS ---
Discharge Instructions CONDITION [id number] Patient Condition: [id number] Stable HOME CARE INSTRUCTIONS: [id number] Diet Instructions: [id number] Low Fat /Cholesterol ACTIVITY: [id number] Activity Restrictions: [id number] No Restrictions FOLLOW UP/APPOINTMENTS Follow-up Plan Annabelle Silva MD Specialty: Gastroenterology Office Address [address] [place] [address] Office OTHER ORDERS: Other Orders: 1. Resume home medications. 2. Resume activities as tolerated. 3. Follow a low-cholesterol diet. 4. Follow-up with your primary care physician 1 week. 5. Please follow-up with outpatient gastroenterology ( Vs others) at the earliest for further evaluation of elevated liver enzymes. 6. Please go to the nearest emergency room if you have any significant abdominal pain, persistent nausea/vomiting, or any other unusual signs/symptoms. DANIELLE FULTON NP August 16, 2018 12:24
--- NOTE | 2018-08-16 12:28 | DS ---
Date/Time of Note Date/Time of Note DATE: 08/16/18 TIME: 12:26 Discharge Summary Admission/Discharge Info Admit Date/Time August 14, 2018 at 23:21 Discharge Date/Time Discharge Diagnosis 1. Acute pancreatitis. 2. Transaminitis. 3. Sinus bradycardia. 4. Dyslipidemia. 5. Hypertension. Patient Condition: Stable Consults 1. Clifford Springer MD, Gastroenterology. 2. Elan Mckoy MD, Cardiology. Procedures MRCP IMPRESSION: Findings are again consistent with acute pancreatitis with small volumes of peripancreatic fluid that extends into the left upper quadrant and tracks inferi ketty along the left pararenal fascia. Mild pancreatic ductal dilatation which may relate to the ongoing acute pancreatitis. There is also noted to be mild intrahepatic and extrahepatic biliary ductal dilatation, without discrete pancreatic head lesion, the differential for which could include a small ampullary based lesion or stricture, that itself may be better evaluated by ERCP or at time of follow-up imaging CT Abdomen & Pelvis IMPRESSION: New findings consistent with acute pancreatitis, which could account for mild dilatation of the pancreatic duct. There is no evidence of pancreatic pseudocyst.. Follow-up is advised to ensure resolution and exclude underlying pathology. Prior cholecystectomy. Mild prominence of the biliary ductal system that is slightly increased compared to the prior, without evidence of calcified common duct stone. No evidence of intestinal obstruction, free air or abscess. Hx of Present Illness Reason for admission: Abdominal pain. Pancreatitis. Consultants 1. Gastroenterology. 2. Cardiology. This is a 82-year-old female with past medical history of hypertension, who came to the emergency room with chief complaint of epigastric abdominal pain with associated nausea and vomiting. The patient verbalized that she started having abdominal pain and chest pain. She took some medications that she brought from [facility] that relieved her chest pain. The patient tried some Tylenol for her abdominal pain with minimal improvement. The patient was complaining of multiple episodes of nonbilious vomiting. The patient denied any hematemesis. The patient denied any fevers. The patient denied any recent travels. The patient denied any diarrhea or hematochezia. In the emergency room, the patient was noticed to have significant transaminitis. The patient was also noticed to [place] [id number] scan of the abdomen and pelvis was showing findings consistent with pancreatitis. The patient was treated with IV fluids, analgesics, and IV antibiotics in the emergency room. Hospital Course The patient was found to have evidence of underlying acute pancreatitis. The etiology of the patient's underlying abdominal pain was underlying pancreatitis. However, etiology of the patient's pancreatitis remained unclear. The patient is status post cholecystectomy. The patient is not an alcohol abuser. MRCP showed mild pancreatic ductal dilation with mild intrahepatic and extrahepatic biliary ductal dilatation without discrete pancreatic head lesion. Gastroenterology was following the patient. The patient was kept n.p.o. The patient was provided with adequate pain control. She was maintained on IV hydration with improvement in the patient's pancreatitis. The patient was st arted on a clear liquid diet and the patient's diet was advanced as tolerated to a regular consistency diet without any significant gastrointestinal symptoms. The patient was also noticed to have transaminitis. Etiology of this remains unclear. The patient's hepatitis serology was positive for hepatitis A antibody. However, the patient's hepatitis A IgM was negative. Patient's urine drug toxicology for salicylates and-acetaminophen was negative. Hepatotoxic drugs were avoided on this patient. The patient's LFTs were trended. Patient was also noticed to have sinus bradycardia with a heart rate as low as in the 40s. The patient remained asymptomatic. The patient was not maintained on any AV mario alberto blocking drugs. The patient was evaluated by cardiology and concluded that the patient's bradycardia could be secondary to increased vagal tone from underlying nausea and vomiting. The patient has history of hypertension and the patient was maintained on PRN hydralazine with well-controlled blood pressure r eadings. The patient was also incidentally noticed to have a fasting lipid panel of total cholesterol showing 209. The patient was advised on a low- cholesterol diet. The patient's symptomatology is completely resolved. The patient is able to tolerate oral intake without any significant gastrointestinal symptoms. The patient needs outpatient gastroenterology follow-up for further evaluation of the cause of her underlying pancreatitis as well as underlying transaminitis. Discharge Instructions 1. Resume home medications. 2. Resume activities as tolerated. 3. Follow a low-cholesterol diet. 4. Follow-up with your primary care physician 1 week. 5. Please follow-up with outpatient gastroenterology ( Vs others) at the earliest for further evaluation of elevated liver enzymes. 6. Please go to the nearest emergency room if you have any significant abd ominal pain, persistent nausea/vomiting, or any other unusual signs/symptoms. The patient's family verbalized understanding of the discharge instructions. At this time I would like to thank all the consultants for seeing the patient and providing clinical recommendations. The patient was seen in collaboration with Dr. Dumont. Home Meds Reported Medications Alendronate Sodium* (Fosamax*) 70 Mg Tablet, 70 MG PO Q7D, #4 TAB 08/14/18 Sertraline Hcl* (Sertraline Hcl*) 50 Mg Tablet, 50 MG PO DAILY, #30 TAB 08/14/18 Losartan Potassium* (Losartan Potassium*) 100 Mg Tablet, 100 MG PO DAILY, TAB 08/14/18 Pantoprazole* (Pantoprazole*) 40 Mg Tablet.dr, 40 MG PO AC BREAKFAST, TAB 08/14/18 Amlodipine Besylate* (Amlodipine Besylate*) 10 Mg Tablet, 10 MG PO DAILY, #30 TAB 08/14/18 Furosemide* (Furosemide*) 20 Mg Tablet, 20 MG PO DAILY, #60 TAB 08/14/18 Ferrous Sulfate* (Ferrous Sulfate*) 325 Mg Tabec, 325 MG PO BID, TAB 08/14/18 Discontinued Reported Medications Ibuprofen* (Ibuprofen*) 800 Mg Tablet, 800 MG PO NEEDED, TAB 08/14/18 Tramadol Hcl* (Ultram*) 50 Mg Tablet, 50 MG PO BID PRN for PAIN, TAB 08/14/18 [Zolpidem] No Conflict Check, PO 02/28/11 [Tramadol] No Conflict Check 02/28/11 [Sertraline] No Conflict Check, PO 02/28/11 [Seroquel] No Conflict Check, PO 02/28/11 [Prevastatin] No Conflict Check 02/28/11 [Pantoprazole] No Conflict Check, PO 02/28/11 [Meloxicam] No Conflict Check, PO 02/28/11 [Gabapentin] No Conflict Check, PO 02/28/11 [Ferrous Sulfate] No Conflict Check, PO 02/28/11 Discontinued Scripts Nitrofurantoin Monohyd Macrocr* (Macrobid*) 100 Mg Capsr, 100 MG PO BID for 7 Days, CAP Prov:HALEY SAMANIEGO MD 09/20/17 Ondansetron Hcl* (Zofran*) 4 Mg Tablet, 4 MG PO Q6H PRN for NAUSEA AND/OR VOMITING, #10 TAB Prov:HALEY SAMANIEGO MD 09/20/17 Follow-up Plan Annabelle Silva MD Specialty: Gastroenterology Office Address [id number] [place] [address] [place] [phone] Office Primary Care Provider Missy Rice Time spent on discharge: > 30 minutes Pending Labs Laboratory Tests Test 08/16/18 05:32 08/16/18 05:33 Phosphorus Level 2.9 mg/dl (2.5-4.9) Magnesium Level 2.0 mg/dl (1.7-2.5) White Blood Count 6.6 10^3/ul (4.8-10.8) Red Blood Count 3.06 10^6/ul (4.20-5.40) Hemoglobin 9.7 g/dl (12.0-16.0) Hematocrit 29.3 % (37.0-47.0) Mean Corpuscular Volume 95.8 fl (82.0-101.0) Mean Corpuscular Hemoglobin 31.7 pg (29.0-33.0) Mean Corpuscular 33.1 g/dl (32.0-37.0) Hemoglobin Concent Red Cell Distribution Width 12.0 % (11.5-14.5) Platelet Count 230 10^3/UL (140-415) Mean Platelet Volume 9.5 fl (7.4-10.4) Immature Granulocytes % 0.300 % (0.001-0.429) Neutrophils % 68.1 % (39.0-77.0) Lymphocytes % 19.5 % (15.0-51.0) Monocytes % 10.8 % (0.0-11.0) Eosinophils % 1.1 % (0.0-7.0) Basophils % 0.2 % (0.0-2.0) Nucleated Red Blood Cells % 0.0 /100WBC (0.0-0.0) Immature Granulocytes # 0.020 10^3/ul (0.0-0.031) Neutrophils # 4.5 10^3/ul (1.6-7.5) Lymphocytes # 1.3 10^3/ul (0.8-2.9) Monocytes # 0.7 10^3/ul (0.3-0.9) Eosinophils # 0.1 10^3/ul (0.0-0.5) Basophils # 0.0 10^3/ul (0.0-0.1) Nucleated Red Blood Cells # 0.0 10^3/ul (0.0-0.0) Sodium Level 140 mmol/L (135-144) Potassium Level 3.2 mmol/L (3.5-5.1) Chloride Level 106 mmol/L (97-110) Carbon Dioxide Level 30 mmol/L (21-31) Anion Gap 4 (5-13) Blood Urea Nitrogen 15 mg/dl (7-20) Creatinine 0.59 mg/dl (0.44-1.00) Est Glomerular Filtrat mL/min (>60) Rate mL/min Glucose Level 96 mg/dl (70-220) Calcium Level 8.5 mg/dl (8.4-10.2) Total Bilirubin 0.6 mg/dl (0.2-1.3) Direct Bilirubin 0.00 mg/dl (0.00-0.20) Indirect Bilirubin 0.6 mg/dl (0-1.1) Aspartate Amino 415 IU/L (15-46) Transf (AST/SGOT) Alanine 779 IU/L (13-69) Aminotransferase (ALT/SGPT) Alkaline Phosphatase 210 IU/L (42-121) Total Protein 6.8 g/dl (6.1-8.1) Albumin 3.7 g/dl (3.3-4.9) Globulin 3.10 g/dl (1.3-3.2) Albumin/Globulin Ratio 1.19 Amylase Level 475 U/L (11-123) Lipase 1053 U/L (23-300) DANIELLE FULTON NP August 16, 2018 12:28
== END 2018-08-16 14:20 | disposition home or self-care (01) | DRG 440 ==
LOC: E/R 04:44 → 6WM 06:17 → OBSVTOIN 23:21
PROVIDERS: ADMIT Family Medicine; ATTEND Family Medicine
DX: K85.90 Acute pancreatitis without necrosis or infection, unspecified (principal); R74.0 Nonspecific elevation of levels of transaminase and lactic acid dehydrogenase [LDH]; R00.1 Bradycardia, unspecified; E78.5 Hyperlipidemia, unspecified; I10 Essential (primary) hypertension
CPT/HCPCS: 36415; 70450; 71045; 74176; 74181; 80053; 80061; 80307; 82150; 83036; 83605; 83690; 83735; 83880; 84100; 84484; 85025; 86038; 86255; 86704; 86706; 86708; 86709; 86803; 87340; 93005; 96374; 96375; G0378; J2060; J2270; J2405; J2543; J3370; J7030